=== PATIENT | male | born 1975 | race Asian ===

== ENCOUNTER 2017-09-16 05:47 | Inpatient (IN) | payer OTHER ==
[2017-09-16] MEDS ORDERED: BUPIVACAINE 0.25% 30 ML SDV ONE (06:48)
[2017-09-16] MEDS ORDERED: THROMBIN (BOVINE) 5,000 UNIT VIAL TP ONE (06:48)
[2017-09-16] MEDS ORDERED: CHLORHEXIDINE GLUC HIBICLENS 118 ML BTL TP ONE (06:48)
[2017-09-16] MEDS ORDERED: BACITRACIN 50,000 UNITS/10 ML SYR IRR ONE ×2 (06:49→10:05)
[2017-09-16] MEDS ORDERED: MIDAZOLAM 2 MG/2 ML VIAL IVP ONE (06:50)
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
[2017-09-16] MEDS ORDERED: ceFAZolin 2 GM/SWFI 2 GM/20 ML SYR IVP ONE (06:58)
--- NOTE | 2017-09-16 07:06 | PDHPUP ---
History & Physical Update H&P update statement: This history and physical update is based on an assessment of the patient which was completed after admission or registration (within 24 hours), but prior to the surgery/procedure. H&P update: H&P reviewed & patient examined, no change in patient's condition since H&P completed
[2017-09-16] MEDS ORDERED: fentaNYL 100 MCG/2 ML INJ ONE ×4 (07:08→13:14)
[2017-09-16] MEDS ORDERED: REMIFENTANIL HCL 1 MG VIAL ONE ×2 (07:08→09:30)
[2017-09-16] MEDS ORDERED: PROPOFOL/EMULSION 500 MG/50 ML BOTTLE IV ONE ×2 (07:09→09:31)
[2017-09-16] MEDS ORDERED: LIDOCAINE 2% 5 ML SDV ONE (07:12)
[2017-09-16] MEDS ORDERED: DEXAMETHASONE 4 MG/ML VIAL ONE ×3 (07:12→08:13)
[2017-09-16] MEDS ORDERED: ONDANSETRON 4 MG/2 ML VIAL ONE (07:12)
[2017-09-16] MEDS ORDERED: ROCURONIUM 50 MG/5 ML VIAL ONE (07:12)
[2017-09-16] MEDS ORDERED: PROPOFOL 200 MG/20 ML VIAL ONE (07:19)
[2017-09-16] MEDS ORDERED: SUGAMMADEX SODIUM 200 MG/2 ML VIAL IVP ONE (07:43)
[2017-09-16] MEDS ORDERED: NALOXONE HCL 0.4 MG/ML INJ IVP PRN ×2 (08:27→12:21)
[2017-09-16] MEDS ORDERED: LR 500 ML IV PRN (08:27)
[2017-09-16] MEDS ORDERED: PROMETHAZINE HCL 25 MG/ML INJ IVP PRN ×2 (08:27→11:25)
[2017-09-16] MEDS ORDERED: ONDANSETRON 4 MG/2 ML VIAL IVP PRN ×2 (08:27→11:25)
[2017-09-16] MEDS ORDERED: ALBUTEROL 3 ML DEYVIAL IH PRN (08:27)
[2017-09-16] MEDS ORDERED: SURGIFLO MATRIX KIT WITH THROMBIN 8ml TP ONE (09:55)
[2017-09-16] MEDS ORDERED: AVITENE POWDER 1 GM JAR TP ONE (10:28)
[2017-09-16] MEDS ORDERED: HYDROmorphONE/DILAUDID 2 MG/ML INJ ONE (10:55)
[2017-09-16] MEDS ORDERED: ALBUTEROL 60 PUFFS/8 GM MDI IH PRN (11:24)
[2017-09-16] MEDS ORDERED: DIAZEPAM 5 MG TAB PO PRN (11:25)
[2017-09-16] MEDS ORDERED: ONDANSETRON DISINTEGRATING 4 MG TAB PO PRN (11:25)
[2017-09-16] MEDS ORDERED: BISACODYL 10 MG SUPP PR PRN (11:25)
[2017-09-16] MEDS ORDERED: diphenhydrAMINE 25 MG CAP PO PRN (11:25)
[2017-09-16] MEDS ORDERED: MAGNESIUM HYDROXIDE 30 ML UDCUP PO PRN (11:25)
[2017-09-16] MEDS ORDERED: LACTULOSE 20 GM/30 ML UDCUP PO PRN (11:25)
--- NOTE | 2017-09-16 11:29 | SOAPPROG ---
SOAP Progress Note Assessment/Plan: Assessment: 42 yo M sp C4-7 ACDF Plan: stable FANNY x 1 hard collar when out of bed please call with neuro changes 09/16/17 11:28 Subjective: + neck pain, no arm pain Objective: Vital Signs Temp Pulse Resp BP Pulse Ox 36.6 C 77 12 152/95 H 92 09/16/17 06:51 09/16/17 08:26 09/16/17 08:26 09/16/17 08:26 09/16/17 08:26 awake, alert PERRL, EOMI ESEQUIEL x 4, 5/5 + light touch ICD10 Worksheet Patient Problems: Problems Problem Status Onset Fusion of spine of cervical region Acute - ICD10 Problem Qualifiers (1) Fusion of spine of cervical region
[2017-09-16] MEDS ORDERED: MEPERIDINE 25 MG/ML SYR ONE (11:32)
[2017-09-16] MEDS ORDERED: HYDROmorphONE/DILAUDID 1 MG/ML INJ ONE ×2 (11:42→12:10)
[2017-09-16] MEDS: fentaNYL 100 MCG/2 ML INJ IVP PRN ×6 (11:44→13:15)
[2017-09-16] MEDS: HYDROmorphONE/DILAUDID 1 MG/ML INJ IVP PRN ×6 (11:44→13:12)
[2017-09-16] MEDS ORDERED: DIAZEPAM 10 MG/2 ML SYR ONE (11:50)
[2017-09-16] MEDS: DIAZEPAM 10 MG/2 ML SYR IVP PRN ×3 (11:51→12:15)
--- NOTE | 2017-09-16 12:21 | POSTANESTH ---
Post Anesthetic Evaluation Cardiovascular Status: Tx Hyper/Hypo-tension Respiratory Status: Normal, Stable Level of Consciousness/Mental Status: Can Participate in Eval Pain Control: Adequate, Prn Tx Ordered Nausea/Vomiting Control: Adequate, Prn Tx Ordered Complications Possibly Related to Anesthesia: None Noted
[2017-09-16] MEDS: LABETALOL HCL 5 MG/ML 20 ML MDV IVP PRN ×2 (12:41→13:15)
[2017-09-16] MEDS ORDERED: LABETALOL HCL 5 MG/ML 20 ML MDV ONE (12:41)
--- NOTE | 2017-09-16 13:47 | GOP ---
[f rep st] OPERATIVE REPORT DATE OF OPERATION: 09/16/2017 SURGEON: Ankit Gibson MD NEUROSURGEON: Ankit Gibson MD SLITTER SCORER: KIANA Jean ANESTHESIA: General endotracheal. PREOPERATIVE DIAGNOSIS: 1. Multilevel severe cervical disk degeneration and collapse, with disk herniations and spinal stenosis. 2. Progressive cervical spondylitic myelopathy. POSTOPERATIVE DIAGNOSIS: 1. Multilevel severe cervical disk degeneration and collapse, with disk herniations and spinal stenosis. 2. Progressive cervical spondylitic myelopathy. PROCEDURE PERFORMED: 1. C4-5, C5-6, and C6-7 complete anterior cervical diskectomy and arthrodesis, with 3 structural PEEK interbody spacers and local autograft. 2. Placement of a 72 mm LnK CastleLoc-P anterior cervical plate from C4 through C7 with self-drilling screws. 3. Use of intraoperative microscopy and fluoroscopy. 4. Partial C5 and C6 vertebral corpectomies. FINDINGS: ESTIMATED BLOOD LOSS: 250 cc. INDICATIONS: The patient is a 42-year-old man with multilevel severe cervical disk degeneration and collapse with disk herniations, canal compromise with spinal cord compression, and progressive cervical myelopathic symptoms. He presents now for surgical decompression and stabilization. DESCRIPTION OF PROCEDURE: After informed consent was obtained, the patient was taken to the operating room and placed in the supine position with the head in the halter retractor system. The anterior cervical region was prepped and draped in a sterile fashion. After fluoroscopic localization of the correct levels, the subcutaneous and intramuscular tissues were infiltrated with local anesthesia. A horizontal linear incision was then created at the level of the C5-6 interspace after fluoroscopic localization. This was carried through the platysmal layer using monopolar electrocautery and carried in the avascular plane between the sternocleidomastoid and carotid sheath laterally, and the strap muscles, trachea, and esophagus medially down to the prevertebral fascia, which was carefully incised with Metzenbaum scissors. The patient had quite dilated, congested veins, some of which necessitated tying them off. Other veins were preserved but they oozed off and on throughout the case but i felt it was in the best interest of the patient to not sacrifice them. The C4-5, C5-6 , and C6-7 interspaces were identified and re-verified using intraoperative fluoroscopy. The large osteophytes were carefully removed and harvested for local autograft. The [place] distraction pins were carefully inserted, first at C4-5, then at C5-6, and then at C6-7, during which time, serial distraction was created across the interspaces and complete diskectomies were performed with preparation of the endplates and removal of the posterior longitudinal ligament along with the posteriorly protruding osteophytes. Bilateral foraminotomies were performed at each level. Note that there was quite a bit of drilling required. With drilling off the superior and inferior endplates and osteophytes at C5 and C6, there was not much bone left to put screws in, and approximately 50% or more of the vertebral bodies were removed for partial C5 and C6 vertebral corpectomies. This was related to the need to decompress the canal thoroughly. Following adequate decompression at each of the 3 levels of both the central canal and neural foramen bilaterally, each individual level was carefully sized for the appropriate graft, and 12 mm structural PEEK interbody spacers packed with local autograft from the osteophytectomy/partial corpectomies were placed in the interspaces serially under distraction. After all of the distraction was removed, an appropriately sized 72 mm LnK CastleLoc- P anterior cervical plate was then placed and secured from C4 through C7 with 16 x 3.5 mm self-drilling screws. After verifying good position of the plate, screws, and bone graft using biplanar fluoroscopy, the locking mechanisms were engaged. The wound was copiously irrigated with antibiotic irrigation. Care was taken to achieve meticulous hemostasis. I did leave some gelfoam in place. There was no active bleeding upon closure but I did ask the anesthesiologist to try and avoid a lot of coughing with extubation so as to not open these veins up and cause them to bleed. The subcutaneous and intramuscular tissues were re- infiltrated with local anesthesia. A drain was placed, and the wound was closed in a layered fashion using interrupted Vicryl sutures, followed by Steri- Strips on the skin. COMPLICATIONS: None. DISPOSITION: The patient was extubated and transported to the recovery room in stable condition. /[id number]/MODL MTDD
--- NOTE | 2017-09-16 14:41 | SOAPPROG ---
SOAP Progress Note Assessment/Plan: Assessment: 42 yo M sp C4-7 ACDF with some drainage from incision Plan: called by SAMUEL Washburn for drainage from wound and saturating dressing. At this point is neck is still soft with no progressive hoarseness. We will transfer him to Step Down Unit for closer observation and Q2 hour neuro checks. FANNY still functional, will keep in place hard collar when out of bed please call with neuro changes patient seen with Dr Kong 09/16/17 11:28 09/16/17 14:38 Subjective: continued neck pain, no arm pain, no weakness or paresthesias. Patient is able to swallow ice/h2o. Patient does not feel that his neck is tight. Objective: Vital Signs Temp Pulse Resp BP Pulse Ox 36.4 C 74 16 140/95 H 94 09/16/17 13:56 09/16/17 13:56 09/16/17 13:56 09/16/17 13:56 09/16/17 13:56 09/15/17 09/16/17 09/17/17 05:59 05:59 05:59 Intake Total 2110 Output Total 470 Balance 1640 AAOx4, +FC PERRL, EOMI, no facial droop 5/5 + light touch neck soft, mildly tender dressing changed, clean, dry and intact ICD10 Worksheet Patient Problems: Problems Problem Status Onset Fusion of spine of cervical region Acute - ICD10 Problem Qualifiers (1) Fusion of spine of cervical region
[2017-09-16] MEDS: NS W/ 20 KCl/L 1,000 ML IV SCH ×2 (14:57→23:23)
[2017-09-16] MEDS ORDERED: ceFAZolin 2 GM/DEXTROSE 100 ML IV SCH (16:00)
[2017-09-16] MEDS: oxyCODONE IR 5 MG TAB PO PRN ×2 (16:12→20:08)
[2017-09-16] MEDS: GABAPENTIN 300 MG CAP PO SCH ×2 (16:14→20:08)
[2017-09-16] MEDS: POLYETHYLENE GLYCOL 3350 17 GM PKT PO SCH ×2 (16:14→20:10)
--- NOTE | 2017-09-16 16:27 | ASMTCMCOM ---
CM Note CM Note Notes: Patient is s/p C4-7 ACDF today and recovering in the ICU. Therapies have been ordered and he is on Q2 neuro checks. He lives with his in [place]. Discharge needs are TBD; Case Management will follow. Date Signed: 09/16/2017 04:27 PM Electronically Signed By:Sofi Drummond RN
[2017-09-16] MEDS: ceFAZolin 2 GM/DEXTROSE 100 ML IV SCH ×2 (17:24→23:23)
[2017-09-16] MEDS: FAMOTIDINE 20 MG TAB PO SCH (20:08)
[2017-09-16] MEDS: SENNOSIDES/DOCUSATE SODIUM TAB PO SCH (20:10)
[2017-09-16] MEDS: CYCLOBENZAPRINE 10 MG TAB PO PRN (20:15)
[2017-09-17] MEDS: METHOCARBAMOL 750 MG TAB PO PRN ×2 (00:15→08:08)
[2017-09-17] MEDS: oxyCODONE IR 5 MG TAB PO PRN ×5 (00:15→21:35)
[2017-09-17] MEDS: CYCLOBENZAPRINE 10 MG TAB PO PRN ×2 (04:16→12:53)
[2017-09-17] MEDS: FAMOTIDINE 20 MG TAB PO SCH ×2 (08:08→20:33)
[2017-09-17] MEDS: SENNOSIDES/DOCUSATE SODIUM TAB PO SCH ×2 (08:08→20:33)
[2017-09-17] MEDS: FLUoxetine 20 MG CAP PO SCH (08:08)
[2017-09-17] MEDS: GABAPENTIN 300 MG CAP PO SCH ×3 (08:08→20:33)
[2017-09-17] MEDS: POLYETHYLENE GLYCOL 3350 17 GM PKT PO SCH ×3 (08:08→21:00)
--- NOTE | 2017-09-17 08:22 | NEUSURGPN ---
Date of Surgery: 09/16/17 Post Op Day: 1 Assessment/Plan: 42 yo male s/p ACDF C4-7 - neuro stable - FANNY drain with 270 cc output since surgery, continue drain - cervical hard collar - postop C-spine x-rays pending - PT/OT - SCDs/TEDs, Lovenox to start POD#3 - Likely transfer to the floor later today Discussed with Dr. Vital Subjective: Having neck pain. No UE radicular pain. Some swallowing difficulties. Objective: Awake. Alert. PERRL. EOMI Following commands Strength full at 5/5 Sensation intact Incision with dressing c/d/i- no further drainage overnight - Physician Discussed Patient with DrVivek: [facility] Physical Exam - Vitals, I&O, Labs I and O 09/16/17 09/17/17 09/18/17 05:59 05:59 05:59 Intake Total 4745 168 Output Total 1450 620 Balance 3295 -452 Weight 89.811 kg Intake: Oral (ml) 1160 IV Intake (ml) 2356 IV Infused (ml) 1229 168 NS W/ 20 KCl/L 1,000 ml @ 1229 168 100 mls/hr IV CONT YOLI Rx#:[id number] Output: Urine (ml) 800 600 Urinal 800 600 Estimated Blood Loss (ml) 400 Emesis (ml) 0 FANNY Drain Output (ml) 250 20 Anterior Neck Eric 250 20 Fletcher Other: Number of Voids Toilet 1 Number of Stools Urinal 0 Vital Signs Temp Pulse Resp BP Pulse Ox 36.9 C 81 18 149/91 H 95 09/17/17 07:17 09/17/17 07:17 09/17/17 07:17 09/17/17 07:17 09/17/17 07:17 ICD10 Worksheet Patient Problems: Problems Problem Status Onset Fusion of spine of cervical region Acute
[2017-09-17 23:14] VITALS: O2SAT 91
[2017-09-18] MEDS: oxyCODONE IR 5 MG TAB PO PRN ×2 (04:02→08:55)
[2017-09-18] MEDS: METHOCARBAMOL 750 MG TAB PO PRN (04:02)
[2017-09-18 04:06] VITALS: RESP 18
[2017-09-18 07:24] VITALS: BP 160/105; PULSE 91; TEMP 97.6
--- NOTE | 2017-09-18 08:40 | NEUSURGPN ---
Date of Surgery: 09/16/17 Post Op Day: 2 Assessment/Plan: Assessment: 42 yo male s/p ACDF C4-7 POD #2 Plan: -neuro stable -FANNY drain with 105 cc output since surgery, continue drain-will discuss with V about removal time frame -cervical hard collar at all times -postop C-spine x-rays look good, no complications -PT/OT-CPM -SCDs/TEDs, Lovenox to start POD#3-walking well -Likely dc later today -warning signs reviewed -call with any questions or concerns Subjective: Awake and alert. NAD. Eating/drinking and voiding. No f/c/n/v/d. Objective: Awake. Alert. PERRL. EOMI Following commands Strength full at 5/5 Sensation intact Incision with dressing c/d/i- no further drainage overnight Neuro Check Frequency: per routine Urinary Catheter in Place: No - Physician Discussed Patient with : [facility] Neurosurgery Physical Exam - Vitals, I&O, Labs I and O 09/17/1718 09/19/17 05:59 05:59 05:59 Intake Total 4745 1168 Output Total 1450 705 Balance 3295 463 Weight 89.811 kg Intake: Oral (ml) 1160 1000 IV Intake (ml) 2356 IV Infused (ml) 1229 168 NS W/ 20 KCl/L 1,000 ml @ 1229 168 100 mls/hr IV CONT YOLI Rx#:[id number] Output: Urine (ml) 800 600 Urinal 800 600 Estimated Blood Loss (ml) 400 Emesis (ml) 0 FANNY Drain Output (ml) 250 105 Anterior Neck Eric 250 105 Fletcher Other: Intake Quantity Yes Sufficient Number of Voids Toilet 1 1 Number of Stools Urinal 0 Vital Signs Temp Pulse Resp BP Pulse Ox 36.4 C 91 18 160/105 H 91 L 09/18/17 07:22 09/18/17 07:22 09/18/17 07:22 09/18/17 07:22 09/18/17 07:22 ICD10 Worksheet Patient Problems: Problems Problem Status Onset Fusion of spine of cervical region Acute
[2017-09-18] MEDS: POLYETHYLENE GLYCOL 3350 17 GM PKT PO SCH (08:55)
[2017-09-18] MEDS: GABAPENTIN 300 MG CAP PO SCH (08:55)
[2017-09-18] MEDS: FAMOTIDINE 20 MG TAB PO SCH (08:55)
[2017-09-18] MEDS: FLUoxetine 20 MG CAP PO SCH (08:56)
[2017-09-18] MEDS: SENNOSIDES/DOCUSATE SODIUM TAB PO SCH (08:56)
[2017-09-18] MEDS: CYCLOBENZAPRINE 10 MG TAB PO PRN (08:56)
--- NOTE | 2017-09-18 11:31 | ASDISCHSUM ---
Discharge Information Plan Status:Home with No Needs Medically Cleared to Leave:09/17/2017 Discharge Date:09/18/2017 11:14 AM CM D/C Disposition:Home, Routine, Self-Care ADT D/C Disposition:Home, Routine, Self-Care Projected Discharge Date:09/18/2017 11:14 AM Transportation at D/C:Family Discharge Delay Reason: Follow-Up Date:09/18/2017 11:14 AM Discharge Slot: Final Diagnosis: Placement Information Patient Contact Information Contact Name:SUSAN Relationship: Address:[address] Work Phone: City:[place] Phone: [facility]/Zip Code:[place] [address] Email: Financial Information Financial Class:HMO and PPO Plans Primary Plan Desc:[employer] Primary Plan Number:[id number] Secondary Plan Desc: Secondary Plan Number: Assessment Information [facility] CM Progress Note CM Note CM Note Notes: Patient is s/p C4-7 ACDF today and recovering in the ICU. Therapies have been ordered and he is on Q2 neuro checks. He lives with his in [place]. Discharge needs are TBD; Case Management will follow. Date Signed: 09/16/2017 04:27 PM Electronically Signed By:Sofi Drummond RN Case Management Discharge Plan Note Case Management Discharge Discharge Order Complete? Answers: Yes Patient to Obtain Answers: via Family Medications Transportation Arranged Answers: Family/Friends Family Notified Answers: Yes Discharge Comments Notes: Pt is discharging home today with family and no CM needs. Date Signed: 09/18/2017 11:29 AM Electronically Signed By:ORI Parra Intervention Information
[2017-09-19] MEDS ORDERED: ENOXAPARIN 40 MG/0.4 ML SYR SC SCH (09:00)
[2017-09-21] MEDS ORDERED: TESTOSTERONE IM 100 MG/ML SYRINGE IM SCH (11:24)
== END 2017-09-18 11:14 | disposition home or self-care (01) | DRG 472 ==
LOC: F3N 05:47 → OBSVTOIN 11:52 → F3N 13:51 → F2N 14:45 → F3N 09-17 13:23
PROVIDERS: ADMIT Neurological Surgery; ATTEND Neurological Surgery
DX: M50.221 Other cervical disc displacement at C4-C5 level (principal); M50.222 Other cervical disc displacement at C5-C6 level; M50.223 Other cervical disc displacement at C6-C7 level; M47.12 Other spondylosis with myelopathy, cervical region; M48.02 Spinal stenosis, cervical region; M51.26 Other intervertebral disc displacement, lumbar region; M51.36 Other intervertebral disc degeneration, lumbar region; G47.33 Obstructive sleep apnea (adult) (pediatric); Z88.0 Allergy status to penicillin; Z88.2 Allergy status to sulfonamides
CPT/HCPCS: 97161-GP; 97166-GO; 97535-GO; C1713; J0171; J0690; J1100; J1170; J2250; J2405; J2704; J3010; J3490